=== PATIENT | female | born 1960 | race Caucasian/White ===

== ENCOUNTER 2021-11-29 16:11 | Emergency (ER) | payer MEDICARE ==
[~2021-11-29] VITALS: Ht 154.9 cm; Wt 92.7 kg
[2021-11-29 18:04] VITALS: BP 112/66
[2021-11-29] MEDS ORDERED: furosemide 10 MG/1 ML 10ml inj IV ONE (18:25)
== END 2021-11-29 19:36 | disposition home or self-care (01) ==
LOC: ER 16:13
DX: I87.2 Venous insufficiency (chronic) (peripheral) (principal); R62.50 Unspecified lack of expected normal physiological development in childhood
CPT/HCPCS: 96374; 99283; J1940; A6258; A6446

== ENCOUNTER 2021-12-16 12:15 | Day surgery (SDC) | payer MEDICARE ==
[~2021-12-16] VITALS: Ht 154.9 cm; Wt 91.3 kg
[~2021-12-16 12:15] MED LIST: ROPIVAcaine 0.5% (5mg/ml) 30ml vial ONE
[2021-12-16 13:26] LABS: BASOPHILS % (AUTO) 0.4 % (0-1); EOSINOPHILS % (AUTO) 0.2 % (0-6); HEMOGLOBIN 11.3 g/dl (12.0-16.0); LYMPHOCYTES # (AUTO) 1.1 X10'3 (1.1-4.8); LYMPHOCYTES % (AUTO) 13.4 % (21-51); MEAN CORPUSCULAR HEMOGLOBIN 31.1 PG (27.0-31.0); MEAN CORPUSCULAR HGB CONC 33.3 g/dL (33.0-36.5); MEAN CORPUSCULAR VOLUME 93.2 FL (78-98); MONOCYTES # (AUTO) 0.7 X10'3 (0-0.9); MONOCYTES % (AUTO) 8.5 % (2-12); NEUTROPHILS # (AUTO) 6.6 X10'3 (1.8-7.7); NEUTROPHILS % (AUTO) 77.5 % (42-75); PLATELET COUNT 341 X10'3 (140-440); RED BLOOD COUNT 3.65 X10'6 (4.20-5.60); RED CELL DISTRIBUTION WIDTH 18.3 % (11.5-14.5); WHITE BLOOD COUNT 8.5 X10'3 (4.5-11.0)
[2021-12-16] MEDS ORDERED: POTA-84 PO (13:27)
[2021-12-16] MEDS ORDERED: FURO-150 PO (13:27)
[2021-12-16] MEDS ORDERED: midazolam 1 mg/ML 2ml injection ONE (13:32)
[2021-12-16] MEDS ORDERED: fentaNYL/PF 50MCG/1 ML 2ML syringe ONE (13:32)
[2021-12-16 15:32] VITALS: BP 108/72
== END 2021-12-16 14:30 | disposition home or self-care (01) ==
LOC: SSTAY O 12:15
PROVIDERS: ATTEND Radiology Diagnostic Radiology
DX: K76.89 Other specified diseases of liver (principal); Z53.8 Procedure and treatment not carried out for other reasons; Z20.822 Contact with and (suspected) exposure to COVID-19
CPT/HCPCS: 36415; 85025; 85610; 87635; C9803; J2250; J2795; J3010; J7030; A4615; A6258